=== PATIENT | male | born 1995 ===

== ENCOUNTER 2022-05-12 12:44 | Emergency (ER) | payer SELFPAY ==
[2022-05-12 13:05] VITALS: BP 128/83
[2022-05-12] MEDS ORDERED: LIDOCAINE-MPF (1%) 10 MG/1 ML VIAL 5 ML INFILTRATI ONE (13:10)
--- NOTE | 2022-05-12 13:11 | Emergency Department Report ---
ED Dysuria HPI - HPI Chief Complaint: Urogenital-Male Stated Complaint: STD X 3 DAYS Time Seen by Provider: 05/12/22 13:08 Duration: 3 Days Location of Discomfort: Suprapubic Severity: Mild Symptoms: Dysuria: Yes, Frequency: No, Suprapubic Pain: No, Flank Pain: No, Fever: No, Hematuria: No, Abdominal Pain: No, Previous UTI's: No Other History: Patient is a 27-year-old male that comes to the emergency room with dysuria. He states that his girlfriend has an STD. He thinks that it is trichomonas but he is not sure. I have educated patient on routine screening of STIs as well as trichomonas and minerals. He verbalizes understanding of. Patient denies any testicular pain. He denies back pain he denies any fever or chills. He is ambulatory, nontoxic and [id number] ED Review of Systems ROS: Stated complaint: STD X 3 DAYS Other details as noted in HPI Comment: All other systems reviewed and negative ED Past Medical Hx - Past Medical History Previous Medical History?: No - Surgical History Past Surgical History?: No - Family History Family history: no significant - Social History Smoking Status: Never Smoker Substance Use Type: None - Medications Home Medications: Home Medications Medication Instructions Recorded Confirmed Last Taken Type Azithromycin [Zithromax Z-ROSANNA] 1,000 mg PO ONCE #4 05/12/22 Unknown Rx metroNIDAZOLE [Flagyl] 500 mg PO ONCE #4 tab 05/12/22 Unknown Rx Dysuria Exam - Exam General: Vital signs noted. No distress. Alert and acting appropriately. Exam: Yes Moist Mucous Membranes, No CVA Tenderness, No Abdominal Tenderness, No Rigidity or Guarding ED Course Vital Signs 05/12/22 13:02 Temperature 99.2 F Pulse Rate 63 Respiratory 16 Rate Blood Pressure 128/83 [Left] O2 Sat by Pulse 99 Oximetry ED Medical Decision Making - Medical Decision Making Vital Signs 05/12/22 13:02 Temperature 99.2 F Pulse Rate 63 Respiratory 16 Rate Blood Pressure 128/83 [Left] O2 Sat by Pulse 99 Oximetry Patient being empirically treated with a gram of Rocephin. He will be discharged home with an azithromycin Flagyl prescription. Safe sex was discussed with patient Patient being discharged home with discharge plan of care including diet, activity, medications and follow-up. He verbalizes understanding. - Differential Diagnosis STD Critical care attestation.: If time is entered above; I have spent that time in minutes in the direct care of this critically ill patient, excluding procedure time. ED Disposition Clinical Impression: STD exposure Disposition: 01 HOME / SELF CARE / HOMELESS Is pt being admited?: No Does the pt Need Aspirin: No Condition: Stable Instructions: Safe Sex Additional Instructions: Safe sex Go to the pharmacy and get the medications that have given you prescriptions for today. Take them all at 1 time today. Follow-up with PCP for recheck. Have given you referral below. Prescriptions: metroNIDAZOLE [Flagyl] 500 mg PO ONCE #4 tab Azithromycin [Zithromax Z-ROSANNA] 1,000 mg PO ONCE #4 Referrals: SHARA HARRIS MD [Staff Physician] - 3-5 Days Forms: Work/School Release Form(ED) Time of Disposition: 13:09
== END 2022-05-13 05:16 | disposition home or self-care (01) ==
LOC: ED 12:44
DX: Z20.2 Contact with and (suspected) exposure to infections with a predominantly sexual mode of transmission (principal)
CPT/HCPCS: 96372; 99282; J0696